=== PATIENT | male | born 1960 | race Caucasian/White ===

== ENCOUNTER 2016-11-11 13:44 | Outpatient (CLI) | payer OTHER ==
--- NOTE | 2016-11-11 15:35 | DIAGNOSTIC IMAGING REPORT ---
PROCEDURE: CT ABD/PELVIS WITH CONTRAST INDICATION: RENAL CONTUSION/HEMATURIA S/P FALL TECHNIQUE: 125 ml of Isovue 300 were injected intravenously and axial images were obtained of the entire abdomen and pelvis with sagittal and coronal reformations. COMPARISON: Compared to chest x-ray and right ribs radiographs earlier today (11/11/2016). FINDINGS: ABDOMEN: There is a nondisplaced fracture the right lateral 11th rib. There is mild delayed filling of the right renal collecting system with mild surrounding perirenal edema. Renal parenchyma appears normal there is no evidence of laceration. Left kidney is normal. Gallbladder, liver, spleen, pancreas, and aorta (mild to moderate calcified atheromatous changes) are normal. Bowel pattern is normal, including appendix. PELVIS: Pelvic structures are normal. No evidence of free fluid. IMPRESSION: 1. There is a nondisplaced fracture the right lateral eighth rib. 2. There is delayed filling of the right renal collecting system with mild surrounding perirenal edema. While renal parenchyma appears normal, findings are consistent with renal contusion/injury. 3. Findings discussed with Dr. Bowen. All CT scans at this facility use dose modulation, iterative reconstruction, and/or weight-based dosing when appropriate to reduce radiation dose to as low as reasonably achievable.
--- NOTE | 2016-11-11 15:47 | DIAGNOSTIC IMAGING REPORT ---
PROCEDURE: XR RIBS BILATERAL W/PA CHEST INDICATION: RENAL CONTUSION/HEMATURIA S/P FALL TECHNIQUE: Two views of the right ribs with single PA view chest. COMPARISON: None. FINDINGS: RIGHT RIBS: There is a nondisplaced fracture of the right lateral 11th rib. The rest of the ribs are normal. CHEST: Lungs are clear. Heart mediastinum are normal. There are moderate degenerative changes of the thoracic spine. IMPRESSION: 1. Nondisplaced fracture the right lateral 11th rib. 2. Negative chest. 3. Findings discussed with Dr. Bowen.
== END 2016-11-11 23:00 ==
LOC: LAB SRH 13:44
DX: S37.019A Minor contusion of unspecified kidney, initial encounter (principal); S22.31XA Fracture of one rib, right side, initial encounter for closed fracture
CPT/HCPCS: 90074; 90100; 95059